=== PATIENT | female | born 1980 | race Two or more races ===

== ENCOUNTER 2018-06-15 14:32 | Emergency (ER) | payer SELFPAY ==
[~2018-06-15] VITALS: Ht 157.5 cm; Wt 81.6 kg
[2018-06-15 14:47] VITALS: BP 134/74
[2018-06-15] MEDS ORDERED: KETOROLAC TROMETH 60MG/2ML VIAL IM ONE (17:00)
[2018-06-15] MEDS ORDERED: METHOCARBAMOL 500 MG TAB PO ONE (17:00)
== END 2018-06-15 17:22 | disposition home or self-care (01) ==
LOC: ER 14:37
DX: M54.5 Low back pain (principal)
CPT/HCPCS: 72100; 99283; J1885